=== PATIENT | male | born 1995 | race Caucasian/White ===

== ENCOUNTER 2019-05-27 16:48 | Emergency (ER) | payer OTHER, SELFPAY ==
[2019-05-27 16:55] VITALS: BP 123/69; PULSE 99; RESP 16; TEMP 37.5; O2SAT 100; BMI 22.8
--- NOTE | 2019-05-27 17:02 | ED.NAVMDI ---
HPI - Nausea/Vomiting/Diarrhea General Chief complaint: Nausea/Vomiting/Diarrhea Stated complaint: DIARRHEA, HEADACHE, FEVER Time Seen by Provider: 05/27/19 17:01 Source: patient Mode of arrival: Ambulatory Limitations: no limitations History of Present Illness HPI Narrative: 24-year-old male comes to the emergency department with about 16 hours of and chills, muscle aches all over. Patient has had some nausea but no vomiting and had diarrhea. Patient states he has probably had 15-20 episodes total in 16 hours. Denies any black or bloody stools. He denies any real abdominal pain. He states his belly is felt sort of bubbly. He denies any chest pain or shortness of breath. No nasal congestion, no cold cough or difficulty with breathing. Patient states he has not had any similar symptoms before. He has not had any sick contacts. He has not eat any food that he is suspicious of. 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 He has not had his flu shot this year. Related Data Previous Rx's Medication Instructions Recorded ondansetron HCl [Zofran] 4 mg PO Q6H PRN #5 tab 05/27/19 Allergies Allergy/AdvReac Type Severity Reaction Status Date / Time No Known Drug Allergies Allergy Verified 05/27/19 16:55 Review of Systems Review of Systems ROS Unobtainable: All systems reviewed & are unremarkable except as noted in HPI and below Constitutional Constitutional: Reports body ache(s), Reports chills, Reports fever(s), Denies lethargy and Denies weakness Eyes Eyes: Denies change in vision Cardiovascular Cardiovascular: Denies chest pain, Denies irregular heart rhythm, Denies lightheadedness, Denies palpitations, Denies dyspnea, Denies dyspnea on exertion and Denies orthopnea Respiratory Respiratory: Denies change in phlegm color, Denies chest congestion, Denies cough, Denies dyspnea, Denies dyspnea on exertion and Denies wheezing Gastrointestinal Gastrointestinal: Denies abdominal pain, Denies melena, Denies hematochezia, Reports change in bowel habits, Reports change in stool character, Denies constipation, Denies excessive flatus, Denies heartburn, Reports diarrhea, Reports nausea and Denies vomiting Genitourinary Genitourinary: Denies hematuria, Denies dysuria, Denies flank pain, Denies urinary frequency, Denies urinary hesitancy, Denies urinary incontinence and Denies urinary urgency Musculoskeletal Musculoskeletal: Reports myalgias Integumentary/Breasts Skin/Breast: Denies erythema and Denies rash Neurologic Neurologic: Denies weakness Endocrine Endocrine: Denies palpitations Allergic/Immunologic Allergic/Immunologic: Denies wheezing Patient History Social History Smoking Status: Never smoker alcohol intake frequency: a few times a month Substance Use Type: does not use Exam Narrative Exam Narrative: GEN: well nourished, well appearing male, alert and oriented x 3, patient appears to be in mild distress. HEENT: Atraumatic, pupils are equal round reactive to light, extraocular movements are intact, nares are clear, TMs are clear with no fluid. Throat is clear without any exudates, erythema, tonsillar enlargement or uvular deviation, patient has moist mucous membranes. HEART: Regular rate and rhythm without murmur, clicks, rubs. LUNGS:Lungs clear to auscultation, no wheezes, rales, crackles, chest moves symmetrically ABD:bowel sounds normal, soft, non-tender, no guarding, rebound, rigidity, no masses noted, no hepatosplenomegaly :No CVA tenderness MSCL: Non-tender, no muscle atrophy, muscles strength 5/5 upper and lower extremities, full range of motion, normal gait NEURO:CN 2-12 intact, sensation normal Initial Vital Signs Initial Vital Signs: Vital Signs Temperature 99.5 F 05/27/19 16:55 Pulse Rate 99 H 05/27/19 16:55 Respiratory Rate 16 05/27/19 16:55 Blood Pressure 123/69 05/27/19 16:55 Pulse Oximetry 100 05/27/19 16:55 Course Orders Ordered: ED Orders 05/27/19 17:20 Influenza A and B by PCR Rapid Stat Discontinued Medications Ondansetron HCl (Zofran Odt) 4 mg SL NOW ONE Stop: 05/27/19 17:10 Last Admin: 05/27/19 17:18 Dose: 4 mg Documented by: JOHNARRINGTO Vital Signs Vital signs: Vital Signs - 8 hr 05/27/19 16:55 Temperature 99.5 F Pulse Rate 99 H Respiratory Rate 16 Blood Pressure 123/69 Pulse Oximetry 100 MDM - Nausea/Vomiting/Diarrhea Lab Data Attestation: I reviewed the patient's lab results. Labs: Lab Results 05/27/19 Range/Units 17:20 Influenza A & B (PCR) Negative (Negative) MDM Narrative Medical decision making narrative: Patient heart rate is slightly elevated at 99. Discussed with patient he would defer any lab work or fluids. Plan for Zofran, influenza swab. Flu swab is negative. patient can't tell the Zofran made much difference but he has not had any more diarrhea in the department. He is not feeling any worse. He feels comfortable to return home. We discussed reasons to return. Signs and symptoms to watch for. He was given a work note for tonight. Discharge Plan Departure Patient Disposition: Home Clinical Impression: Diarrhea Instructions: Diarrhea Activity Restrictions/Additional Instructions: Follow-up with primary care or return to the emergency department if you are not having any improvement in the next 24-48 hours. You may use Zofran 1 tablet every 6 hours needed for nausea. Make sure you are staying hydrated and drinking plenty of fluids. Return to the emergency department for fevers greater 100.4 F, persistent vomiting, black or bloody stools, abdominal pain, flank pain, signs of dehydration or decrease in urine output or other new or concerning symptoms. Prescriptions: New ondansetron HCl [Zofran] 4 mg tablet 4 mg PO Q6H PRN (Reason: nausea and vomiting) Qty: 5 RF: 0 Stand Alone Forms: Work Release Note
[2019-05-27] MEDS: ONDANSETRON 4 MG ODT SL (17:18)
[2019-05-27 18:12] LABS: Influenza A and B by PCR Rapid Negative (Negative)
[2019-05-27 18:24] VITALS: BP 126/67; PULSE 65; RESP 15
== END 2019-05-27 18:24 | disposition home or self-care (01) ==
PROVIDERS: Emergency Provider Emergency Medicine
DX: R19.7 Diarrhea, unspecified (principal); M79.10 Myalgia, unspecified site; R50.9 Fever, unspecified; R11.0 Nausea
CPT/HCPCS: 87502; 99282; 99283

== ENCOUNTER 2019-07-26 05:57 | Emergency (ER) | payer OTHER, SELFPAY ==
[2019-07-26 05:57] VITALS: BP 126/71; PULSE 51; RESP 16; TEMP 36.5; O2SAT 99; BMI 23.6
--- NOTE | 2019-07-26 06:10 | ED_ITS ---
HPI - Allergic Reaction General Chief complaint: Skin/Abscess/Foreign Body Stated complaint: woke up with rash everywhere Time Seen by Provider: 07/26/19 05:57 Source: patient Mode of arrival: Ambulatory Limitations: no limitations History of Present Illness HPI narrative: 24-year-old male nonsmoker with noncontributory medical history presents with a chief complaint of an intensely itchy rash with hives that star wesley at his neck and waistline on Saturday when he was using a new cleaning agent on an aircraft. His hives of gradually spread to include his extremities and trunk and he has some swelling of his lower lip but no difficulty in swallowing or breathing. He denies any history of the same. He took some Benadryl last night which helped him sleep but upon waking this morning his rash was more widespread, hence his decision to be seen. He denies any chest pain abdominal pain or diarrhea. MD complaint: allergic reaction Onset (ago): day(s) Exposure: other Symptoms: rash and itching Severity: moderate Treatment prior to arrival: benadryl Previous Allergic Reaction History: none Related Data Previous Rx's Medication Instructions Recorded ondansetron HCl [Zofran] 4 mg PO Q6H PRN #5 tab 05/27/19 prednisone 40 mg PO DAILY 4 Days tab 07/26/19 Allergies Allergy/AdvReac Type Severity Reaction Status Date / Time No Known Drug Allergies Allergy Verified 05/27/19 16:55 Review of Systems Constitutional Constitutional: Denies chills, Denies fatigue, Denies fever(s), Denies frequent falls, Denies lethargy and Denies weakness Eyes Eyes: Denies change in vision, Denies eye discharge, Denies irritation and Denies loss of vision ENT Ears, Nose, Mouth, and Throat: Denies change in voice, Denies dizziness, Denies neck pain, Denies sore throat and Denies throat swelling Cardiovascular Cardiovascular: Denies chest pain, Denies irregular heart rhythm, Denies lightheadedness, Denies palpitations, Denies dyspnea, Denies dyspnea on exertion and Denies orthopnea Respiratory Respiratory: Denies cough, Denies dyspnea, Denies dyspnea on exertion and Denies wheezing Gastrointestinal Gastrointestinal: Denies abdominal pain, Denies change in bowel habits, Denies diarrhea, Denies nausea and Denies vomiting Genitourinary Genitourinary: Denies hematuria, Denies flank pain, Denies urinary incontinence and Denies urinary urgency Musculoskeletal Musculoskeletal: Denies back pain, Denies muscle weakness, Denies neck pain, Denies numbness and Denies tingling Integumentary/Breasts Skin/Breast: Reports pruritus, Denies erythema, Reports rash and Denies wounds Neurologic Neurologic: Denies behavioral changes, Denies confusion, Denies dizziness, Denies frequent falls, Denies loss of vision, Denies numbness, Denies tingling and Denies weakness Psychiatric Psychiatric: Denies anxiety, Denies behavioral changes, Denies confusion, Denies depression, Denies homicidal ideation and Denies suicidal ideation Endocrine Endocrine: Denies fatigue, Denies flushing and Denies palpitations Hematologic/Lymphatic Hematologic/Lymphatic: Denies easy bruising Allergic/Immunologic Allergic/Immunologic: Denies urticaria, Denies throat swelling and Denies wheezing Patient History Social History Smoking Status: Never smoker Smoking Status: Never smoker alcohol intake frequency: a few times a month Substance Use Type: does not use Exam Initial Vital Signs Initial Vital Signs: Vital Signs Temperature 97.7 F 07/26/19 05:57 Pulse Rate 51 L 07/26/19 05:57 Respiratory Rate 16 07/26/19 05:57 Blood Pressure 126/71 07/26/19 05:57 Pulse Oximetry 99 07/26/19 05:57 Const General: cooperative and well developed Nutritional Appearance: well nourished Orientation: alert, awake, oriented x3 and not confused [facility] Head: normocephalic and atraumatic Ears: external ears normal and TM's normal bilaterally Nose: external nose normal and No nasal discharge Face and sinus: sinuses nontender, face symmetric, no sinus tenderness and No dry mucous membranes Mouth: oral mucosae normal and moist mucous membranes Teeth and gingiva: dentition normal Throat: tonsils normal and uvula midline Eyes General: appearance normal, both eyes and all related structures Eyelids: eyelids normal Conjunctivae: conjunctivae normal Sclera: sclerae normal Pupils: PERRL EOM: EOM intact bilaterally Neck Neck: normal visual inspection, trachea midline, No lymphadenopathy, No midline deformity and No JVD Lymphatic: No lymphedema Chest Chest: normal inspection of the chest Resp Effort & Inspection: normal respiratory effort, able to speak in complete sentences, no respiratory distress and no use of accessory muscles Auscultation: clear to auscultation bilaterally, no rales, no rhonchi and no wheezes Cardio Rate: regular rate Rhythm: regular rhythm Heart Sounds: no click, no gallops, no murmurs and no rubs Pulses: normal peripheral pulses GI Inspection: non-distended Palpation: soft, no hepatosplenomegaly, No guarding, No pulsatile mass and No tender Auscultation: normal bowel sounds Back/Spine/Pelvis Back: No CVA tenderness Cervical Spine: cervical ROM normal and No pain with cervical ROM Thoracic/Lumbar Spine: thoracic and lumbar spine normal to inspection Skin General: No jaundice and No petechiae Rashes: rashes noted (hives on neck, arms, back) Neuro General: alert, oriented x3, gait normal and no focal motor deficits Speech: speech normal Extrem General: full ROM, no clubbing, cyanosis or edema, no pedal edema and no calf tenderness Psych Appearance: well kempt Mental Status: mental status grossly normal Attitude: cooperative Thought Content: normal and suicidality Judgment: judgment good Course Course Course Narrative: Patient states that the itching and redness initially was only on portions of his skin which had been exposed to the aircraft wash as mentioned, over subsequent days and then spread. He had been on doxycycline starting in mid June but tolerated it quite well and had no problems until after he was exposed to the above-stated likely trigger. Nathaniel Red considered but patient has no intraoral involvement or Nikolsky sign. Orders Ordered: Discontinued Medications Famotidine (Pepcid) 20 mg in 50 mls @ 200 mls/hr IV NOW ONE Stop: 07/26/19 06:23 Last Infusion: 07/26/19 06:38 Dose: 0 mls/hr Documented by: Admin: 07/26/19 06:15 Dose: 200 mls/hr Documented by: LEONARD Methylprednisolone (Solu-Medrol 125 Mg Vial) 125 mg IV NOW ONE Stop: 07/26/19 06:09 Last Admin: 07/26/19 06:16 Dose: 125 mg Documented by: LEONARD Vital Signs Vital signs: Vital Signs - 8 hr 07/26/19 05:57 Temperature 97.7 F Pulse Rate 51 L Respiratory Rate 16 Blood Pressure 126/71 Pulse Oximetry 99 Discharge Plan Departure Patient Disposition: Home Clinical Impression: Allergic reaction Qualifiers: Encounter type: initial encounter Qualified Code(s): T78.40XA - Allergy, unspecified, initial encounter Instructions: DI for General Allergic Reactions Activity Restrictions/Additional Instructions: *You have been diagnosed with [allergic reaction *What to do: *Take medications as directed: Your prescription for prednisone was sent to [facility] in [place]. Also please take antihistamines like Benadryl or Zyrtec as well as Pepcid for the next few days *Follow up with your primary care provider in 2-3 days, call for an appointment. Let them know you were seen in the Emergency Department and that we ask that you be seen in follow up *Return to ER if you should have any new, worsening or concerning symptoms Prescriptions: New prednisone 20 mg tablet 40 mg PO DAILY 4 Days RF: 0 No Action ondansetron HCl [Zofran] 4 mg tablet 4 mg PO Q6H PRN (Reason: nausea and vomiting) Qty: 5 RF: 0
[2019-07-26] MEDS: FAMOTIDINE 20 MG/50 ML PIGGYBACK 200 MG IV (06:15)
[2019-07-26] MEDS: methylPREDNISolone 125 MG/2 ML VIAL IV (06:16)
[2019-07-26 06:49] VITALS: BP 111/59; PULSE 67; RESP 18; O2SAT 96
== END 2019-07-26 06:49 | disposition home or self-care (01) ==
PROVIDERS: Emergency Provider Emergency Medicine
DX: T78.49XA Other allergy, initial encounter (principal)
CPT/HCPCS: 36415; 96365; 96375; 99283; 99284; J2930

== ENCOUNTER 2020-01-25 08:27 | Emergency (ER) | payer OTHER, SELFPAY ==
[2020-01-25 09:02] VITALS: BP 131/61; PULSE 89; RESP 16; TEMP 37.1; O2SAT 100; BMI 25.1
[2020-01-25] MEDS: AZITHROMYCIN 250 MG TABLET 500 MG PO (10:21)
[2020-01-25] MEDS: IBUPROFEN 400 MG TABLET 800 MG PO (10:21)
[2020-01-25] MEDS: predniSONE 20 MG TABLET 60 MG PO (10:22)
[2020-01-25 10:28] VITALS: BP 122/78; PULSE 100; RESP 18; TEMP 38.3; O2SAT 99
--- NOTE | 2020-01-25 20:43 | ED_ITS ---
HPI - URI/Sore Throat General Chief Complaint: Upper Respiratory Symptoms Stated Complaint: chills,sore throat Time Seen by Provider: 01/25/20 09:48 Source: patient Mode of arrival: Ambulatory Limitations: no limitations History of Present Illness HPI Narrative: CC: Sore Throat HPI: The patient is a 24-year-old male comes into the emergency department stating that he developed a sore throat yesterday that was relieved by 1 cough drop. This morning when he woke up he had a severe backed sore throat. He also had a little bit of an earache in his right ear. He was having increased pressure in the right ear. He states that he still has his tonsils. He has had no cough or chest pain associated with this had no belly pain nausea or vomiting. He arm states that he felt feverish he has had some minimal chills but he had profuse sweats at night. He was complaining that his body just ached all over especially arm his legs. He had no specific joints that were bothering him. He denied any significant shortness of breath or chest pain. He has had no abdominal pain nausea vomiting or diarrhea. He denies any urinary symptoms. Patient denies a history of asthma hypertension diabetes mellitus as well as a heart murmur. Related Data Previous Rx's Medication Instructions Recorded ondansetron HCl [Zofran] 4 mg PO Q6H PRN #5 tab 05/27/19 azithromycin [Zithromax] See Rx Instructions .ROUTE 01/25/20 .COMPLEX #6 tab naproxen [Naprosyn] 500 mg PO BID PRN #20 tab 01/25/20 prednisone 40 mg PO DAILY #10 tab 01/25/20 Allergies Allergy/AdvReac Type Severity Reaction Status Date / Time No Known Drug Allergies Allergy Verified 05/27/19 16:55 Review of Systems Review of Systems Narrative: Review of systems were all negative except for those mentioned in the history of present illness. Patient History Social History Smoking Status: Never smoker Smoking Status: Never smoker alcohol intake frequency: a few times a month Substance Use Type: does not use Exam Narrative Exam Narrative: PHYSICAL EXAM: CONSTITUTIONAL: Awake, Alert, Oriented, Coherent, Cooperative in NAD. Does not appear toxic or ill. HEAD: AT/NC EENT: PERRL, FROM of eyes, no discharge, no conjunctivitis. EARS:No drainage from the ears, Tympanic membranes intact bilaterally, clear EAC. No redness or signs of infection NOSE:No epistaxis or nasal drainage MOUTH: His oral mucosa is moist and pink. Posterior pharynx reveals that he has enlarged cryptic tonsils with a mucoid exudate over the tonsils. NECK: Supple, no obvious JVD, Trachea is midline without stridor, large submandibular and anterior cervical lymph nodes palpable bilaterally.. SPINE: Palpation of the cervical, Thoracic, Lumbar or Sacral spine reveals no gross deformity or tenderness. No CVA tenderness. THORAX: No deformity, retractions, chest wall tenderness. LUNGS: Clear, symmetrical breath sounds without respiratory distress. HEART: Normal heart tones, regular rhythm and rate without murmur. ABDOMEN: Soft, non-tender, no guarding, rebound, rigidity or palpable mass. LYMPHATIC: no palpable spleen EXTREMITIES: No edema, deformity, tenderness or cyanosis. SKIN: No rash, bruising, petechiae or purpura. NEURO: Awake, alert, oriented, conversive, cranial nerves II-XII are symmetrical , moves all 4 extremities and is ambulatory. MENTAL HEALTH: Does not appear anxious or depressed. Initial Vital Signs Initial Vital Signs: Vital Signs Temperature 98.7 F 01/25/20 09:02 Pulse Rate 89 01/25/20 09:02 Respiratory Rate 16 01/25/20 09:02 Blood Pressure 131/61 01/25/20 09:02 Pulse Oximetry 100 01/25/20 09:02 Course Orders Ordered: Discontinued Medications Azithromycin (Zithromax) 500 mg PO NOW ONE Stop: 01/25/20 10:14 Last Admin: 01/25/20 10:21 Dose: 500 mg Documented by: ROSE Ibuprofen (Advil) 800 mg PO NOW ONE Stop: 01/25/20 10:14 Last Admin: 01/25/20 10:21 Dose: 800 mg Documented by: ROSE Prednisone (Deltasone) 60 mg PO NOW ONE Stop: 01/25/20 10:14 Last Admin: 01/25/20 10:22 Dose: 60 mg Documented by: ROSE MDM - URI/Sore Throat Medical Records Attestation: I reviewed the patient's medical records. Lab Data Labs: Point of Care Testing Rapid Strep A Negative Discharge Plan Departure Patient Disposition: Home Clinical Impression: Acute bacterial tonsillitis, Acute sore throat, Adenopathy, cervical, Gen eralized body aches Discharge Date/Time: 01/25/20 10:40 Instructions: DI for Strep Throat, DI for Pharyngitis/Tonsillopharyngitis -- Child Activity Restrictions/Additional Instructions: 1. Because of her complaints we ordered Covid test on you. You will have to stay home and quarantine yourself for at least the next 3 days or until your called by the hospital and given the results of your Covid test. 2. You need to follow-up with your primary care physician as needed. If you develop worsening shortness of breath, sore throat, chest pain, cough, dizziness or passing-out you need to return to the emergency department. 3. You need to drink 2-4 L of fluid per day. 4. Use Naprosyn 500 mg twice a day for any pain or discomfort. 5. Take the prednisone as prescribed. 6. Take the Zithromax as prescribed. Prescriptions: New azithromycin [Zithromax] 250 mg tablet See Rx Instructions .ROUTE .COMPLEX Qty: 6 RF: 0 naproxen [Naprosyn] 500 mg tablet 500 mg PO BID PRN (Reason: pain) Qty: 20 RF: 0 prednisone 20 mg tablet 40 mg PO DAILY Qty: 10 RF: 0 No Action ondansetron HCl [Zofran] 4 mg tablet 4 mg PO Q6H PRN (Reason: nausea and vomiting) Qty: 5 RF: 0 Stand Alone Forms: Work Release Note
[2020-01-27 17:36] LABS: COVID19 Sendout Not Detected (Not Detected)
== END 2020-01-25 10:40 | disposition home or self-care (01) ==
PROVIDERS: Emergency Provider Emergency Medicine
DX: J03.80 Acute tonsillitis due to other specified organisms (principal); R59.0 Localized enlarged lymph nodes
CPT/HCPCS: 87070; 87635; 87880; 99283